=== PATIENT | female | born 1940 | race Caucasian/White ===

== ENCOUNTER → 2021-06-24 11:01 | Outpatient (CLI) | payer MEDICARE, SELFPAY ==
--- NOTE | ~2021-06-24 | MR_ITS ---
EXAMINATION: MR foot LT wo con DATE: 06/24/2021 12:26 INDICATION: Left foot and ankle pain. Arthritis. TECHNIQUE: Magnetic resonance imaging (MRI) of the left foot centered at the midfoot and excluding po rtions of the toes and hindfoot was performed without intravenous contrast. Sequences included sagitt al T1-weighted FSE, sagittal fluid sensitive FSE STIR, coronal PD-weighted FS FSE, coronal T1-weighte d FSE, axial PD-weighted FS FSE, and axial PD-weighted FSE. COMPARISON: Left foot and ankle radiographs dated 01/20/2019 FINDINGS: Chronic fusion across the second tarsal metatarsal joint. Bone alignment is normal. No fractures. No pathologic marrow replacing process. Polyarticular osteoarthritis, severe at the third tarsal metatar chaz joint and at the naviculocuneiform articulations, the latter with prominent subarticular cystic c hanges at both sides of the joint space. Additional moderate osteoarthritis at the first metatarsopha langeal joint and mild osteoarthritis at many of the remaining joints in the mid and forefoot. [place] ligament complex is normal. The flexor and extensor tendons are normal. Mild fatty atrophy of the intrinsic musculature of the foot. No joint effusions, tenosynovitis, bursitis or other abnormal flui d collections. IMPRESSION: 1. 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 2. Fusion across the second tarsal metatarsal joint. Reviewed, dictated and finalized at location A.
== END ==
PROVIDERS: PCP Family Medicine; Visit Provider Podiatrist Foot & Ankle Surgery
DX: M13.872 Other specified arthritis, left ankle and foot (principal); M24.675 Ankylosis, left foot
CPT/HCPCS: 73718

== ENCOUNTER 2021-07-16 17:07 | Emergency (ER) | payer MEDICARE, SELFPAY ==
[2021-07-16 17:11] VITALS: BP 158/56; PULSE 64; RESP 18; TEMP 36.6; O2SAT 96
--- NOTE | 2021-07-16 17:18 | ECG_ITS ---
Measurements Intervals [place] Rate: 56 P: 48 [place]: 152 QRS: -10 QRSD: 86 T: 66 QT: 437 QTc: 423 Interpretive Statements SINUS BRADYCARDIA INCOMPLETE RIGHT BUNDLE BRANCH BLOCK DELAYED PRECORDIAL R/S TRANSITION VOLTAGE CRITERIA FOR LVH MINIMAL Q WAVES- HIGH LATERAL LEADS BASELINE ARTIFACT- I, II, AVR, V1 BORDERLINE ECG Electronically Signed On 07-16-2021 17:45:24 CDT by Noah Gutierrez D.O.
[2021-07-16 17:28] LABS: Basophils Absolute Auto 0.1 K/mm3 (0.0-0.1); Basophils Percent Auto 0.5 % (0.2-1.2); Eosinophils Absolute Auto 0.2 K/mm3 (0-0.3); Eosinophils Percent Auto 1.7 % (0-4.4); Hematocrit 43.1 % (37.0-47.0); Hemoglobin 13.5 g/dL (12.0-15.0); Immature Granulocyte Absolute 0.03 K/mm3 (0.00-0.031); Immature Granulocyte Percent A 0.3 % (0-0.5); Lymphocytes Absolute Auto 2.52 K/mm3 (0.9-3.2); Lymphocytes Percent Auto 27.5 % (18.3-44.2); Mean Corpuscular HGB Conc 31.3 g/dl (32-36); Mean Corpuscular Hemoglobin 29.2 pg (26-34); Mean Corpuscular Volume 93.1 fl (80-100); Mean Platelet Volume 10.2 fl (7.4-10.4); Monocytes Absolute Auto 0.7 K/mm3 (0.1-0.6); Monocytes Percent Auto 7.5 % (2.6-8.5); Neutrophils Absolute Auto 5.7 K/mm3 (1.3-6.7); Neutrophils Percent Auto 62.5 % (45.5-73.1); Platelet Count Result 256 k/mm3 (150-375); Red Blood Count 4.63 M/mm3 (4.2-5.4); Red Cell Distribution Width 14.2 % (11.5-14.5); White Blood Count 9.2 K/mm3 (4.5-10.0)
[2021-07-16 17:41] LABS: Anion Gap 8 mmol/L (8-16); Blood Urea Nitrogen 25 mg/dL (7-17); Calcium 9.5 mg/dL (8.4-10.2); Carbon Dioxide 30 mmol/L (22-30); Chloride 104 mmol/L (98-107); Estimated CRCL calculation 38 ml/min; Estimated Glomerular Filt Rate 53; Glucose 98 mg/dL (65-110); Potassium 4.3 mmol/L (3.4-5.0); Sodium 142 mmol/L (137-145)
[2021-07-16 17:53] LABS: Troponin I < 0.012 ng/mL (0.000-0.034)
[2021-07-16 21:10] VITALS: BP 150/69; PULSE 59; RESP 16; TEMP 36.7; O2SAT 96
[2021-07-16 21:45] VITALS: BP 210/87; PULSE 64; RESP 17; O2SAT 98
[2021-07-16 21:58] VITALS: BP 193/84; PULSE 61; RESP 16; O2SAT 95
--- NOTE | 2021-07-16 22:54 | ED.RECABL ---
HPI - Recheck/Abnormal Lab/Rx General Chief Complaint: Recheck/Abnormal Lab/Rx Stated Complaint: high BP Time Seen by Provider: 07/16/21 21:43 History of Present Illness HPI narrative: Patient presents for recheck of her blood pressure. Patient reports today she noted her blood pressures were greater than 200 she talked her PCM and some friends and recommended that she come to the ER for evaluation. Patient reports initially felt a little lightheaded and had some back pain but her symptoms have now resolved. She denies any headaches, change in vision, focal numbness or weakness. Related Data Home Medications Medication Instructions Recorded Confirmed aspirin 81 mg tablet,delayed 81 mg PO DAILY 11/03/19 12/27/20 release multivitamin 1 tablet PO DAILY 11/03/19 12/27/20 pregabalin 50 mg capsule 50 mg PO DAILY cap 06/21/20 12/27/20 Allergies Allergy/AdvReac Type Severity Reaction Status Date / Time procaine Allergy Unknown syncope Verified 07/13/21 14:00 Sulfa (Sulfonamide Allergy Unknown rash Verified 07/13/21 14:00 Antibiotics) sulfacetamide Allergy Unknown rash Verified 07/13/21 14:00 sulfur dioxide Allergy Unknown rash Verified 07/13/21 14:00 Review of Systems Review of Systems: CONSTITUTIONAL: Denies fever, chills, or sweats. EYES: Denies visual changes, redness, or discharge. ENT: Denies rhinorrhea, congestion, sore throat, or otalgia. CARDIOVASCULAR: Denies chest pain, palpitations, or edema. RESPIRATORY: Denies cough or dyspnea. GASTROINTESTINAL: Denies abdominal pain, nausea, vomiting, or diarrhea. GENITOURINARY: Denies dysuria or hematuria. SKIN: Denies rash or itching. MUSCULOSKELETAL: Denies back pain, joint pain, or myalgia. NEUROLOGIC: Denies headache, numbness, dizziness, or weakness. PSYCHIATRIC: Denies anxiety or depression. All systems reviewed & are unremarkable except as noted in HPI and below PMFSH Past Medical History Medical History Chronic kidney disease, stage 3 unspecified Rash Family History Family History Father Family history of pancreatic cancer Hypertension Family history of malignant neoplasm Mother Family history of malignant neoplasm of breast in first degree relative Hypertension Family history of coronary artery disease Sibling Family history of coronary artery disease Other Family history of congenital heart disease Social History Social History Smoking packs per day: 1 Smoking cigarettes per day: 20.0 Years smoked: 15 Smoking pack-years: 15.00 Smoking status: Former smoker Tobacco type: cigarettes Second hand tobacco smoke exposure: No Smoking end date: 12/02/00 Alcohol intake: never Substance use: never Substance use type: does not use Gender identity (if verbalized by the patient): Female Exam Narrative: GENERAL: Well-appearing, well-nourished, and in no acute distress. HEAD: Normocephalic, atraumatic. EYES: PERRLA and EOMI. ENT: Nares clear, no rhinorrhea or epistaxis. Mucous membranes moist. NECK: Supple. No masses. No JVD CHEST: Clear to auscultation. No respiratory distress. No wheezes rales or rhonchi HEART: Regular rate and rhythm. No murmur heard. Normal peripheral pulses. ABDOMEN: Soft, nontender, nondistended, normal active bowel sounds. EXTREMITIES: Normal range of motion. No edema. SKIN: Warm, dry, no rash. NEURO: 5 out of 5 strength in all extremities sensation intact to light touch cranial nerves II through XII are intact alert and oriented x3. PSYCH: Normal mood and affect. Course Vital Signs Vital signs: Vital Signs Temperature 36.6 C 07/16/21 17:11 Pulse Rate 64 07/16/21 17:11 Respiratory Rate 18 07/16/21 17:11 Blood Pressure 158/56 H 07/16/21 17:11 Pulse Oximetry 96 07/16/21 17:11 Temperature 36.7 C 07/16/21 21
[2021-07-16 23:11] VITALS: BP 196/76; PULSE 65; RESP 18; O2SAT 96
== END 2021-07-16 23:12 | disposition home or self-care (01) ==
PROVIDERS: Emergency Medicine; Emergency Provider Emergency Medicine; PCP Family Medicine
DX: R03.0 Elevated blood-pressure reading, without diagnosis of hypertension (principal); N18.30 Chronic kidney disease, stage 3 unspecified; Z87.891 Personal history of nicotine dependence
CPT/HCPCS: 36415; 80048; 84484; 85025; 93005; 99284

== ENCOUNTER → 2023-05-23 12:17 | Outpatient (CLI) | payer MEDICARE, SELFPAY ==
--- NOTE | ~2023-05-23 | DEXA_ITS ---
Bone Density Report Name: PAU BURLESON Age: 82 Sex: Female Ethnicity: White Date of : 1940 Indication: postmenopausal; screening for osteoporosis; height loss; hysterectomy; Referring Provider: Mango Juarez Study: Bone densitometry was performed. Exam Date: May 23, 2023 Accession number: [id number] Bone Density: Region BMD T-score Z-score Classification AP Spine (L1, L2) 1.000 0.2 2.8 Normal Femoral Neck (Left) 0.662 -1.7 0.7 Osteopenia Total Hip (Left) 0.647 -2.4 -0.3 Osteopenia World Health Organization criteria for BMD impression classify patients as: Normal (T-score at or above -1.0), Osteopenia (T-score between -1.0 and -2.5), or Osteoporosis (T-score at or below -2.5). 10-year Fracture Risk(1): Major Osteoporotic Fracture 14% Hip Fracture 3.5% Reported Risk Factors: [place] (), Neck BMD=0.662, BMI=29.7 (1) FRAX(R) Version 3.08. Fracture probability calculated for an untreated patient. Fracture probability may be lower if the patient has received treatment. Clinical Information Provided by Patient: Has used the following medications: Vitamin D Has the following medical conditions: Hysterectomy Patient maximum height was 62.5 Menopause Age: 36 No regular weight bearing exercise Drinks caffeinated beverages Onset of menses at age 13 Number of children 5 Impression: The patient has low bone mass, based on the Left Total Hip T-score. The patient has an estimated ten-year risk of hip fracture of 3.5% and an estimated ten-year risk of major fracture of 14%, based on the WHO FRAX algorithm. Discussion: BONE DENSITY IS LOW AT ONE OR MORE SKELETAL SITES. THE PATIENT'S BMD AND CLINICAL RISK FACTORS CONTRIBUTE TO THIS PATIENT'S INCREASED RISK OF FRACTURE. This patient's lowest T-score is low at one or more skeletal sites. It meets the World Health Organization's (WHO) criteria for ?low bone mass? (T-score between -1.0 and -2.5). The patient's 10-year risk of hip fracture as calculated by FRAX exceeds the threshold where pharmacological therapy is recommended by the National Osteoporosis Foundation (NOF). However, all treatment decisions require clinical judgment and consideration of individual patient factors, including patient preferences, comorbidities, previous drug use, risk factors not captured in the FRAX model (e.g., frailty, falls, vitamin D deficiency, increased bone turnover, interval significant decline in bone density) and possible under or overestimation of fracture risk by FRAX. The patient should follow a healthful lifestyle (good nutrition with adequate calcium and vitamin D, and appropriate weight-bearing exercise). Follow-Up: Consider a repeat BMD and Vertebral Fracture Assessment (VFA) exam in 2 years or sooner if medically necessary, to reassess this patient's status. Reported by: KYA on
== END ==
PROVIDERS: PCP Family Medicine; Visit Provider Family Medicine
DX: Z78.0 Asymptomatic menopausal state (principal); M85.852 Other specified disorders of bone density and structure, left thigh
CPT/HCPCS: 77080

== ENCOUNTER → 2023-05-23 12:22 | Outpatient (CLI) | payer MEDICARE, SELFPAY ==
--- NOTE | ~2023-05-23 | XR_ITS ---
EXAM: XR lumbar spine 2-3V DATE: 05/23/2023 13:11 HISTORY: NO INJURY LEFT HIP AND LB . COMPARISON: None available. FINDINGS: Osteopenia. Moderate lumbar scoliosis. Partially visualized right hip arthroplasty. Cholecy stectomy clips. 5 nonrib-bearing lumbar-type vertebral bodies. Pedicles intact. Exaggerated lumbar lo rdosis. 3 mm retrolistheses at L1-2, L2-3, and L3-4. 2 mm anterolisthesis at L5-S1. Multilevel disc s pace narrowing and marginal osteophytosis severe at L1-2 through L3-4 and L5-S1. Severe sclerosis and hypertrophy in the lower lumbar facets. No fracture or dislocation. IMPRESSION: Multilevel grade 1 listheses, detailed above. Multilevel severe lumbar degenerative disc disease. Ultrasound level severe facet arthropathy. Reviewed, dictated and finalized at location K. IMPRESSION: Multilevel grade 1 listheses, detailed above. Multilevel severe lum bar degenerative disc disease. Ultrasound level severe facet arthropathy.
--- NOTE | ~2023-05-23 | XR_ITS ---
EXAM: XR sacroiliac joints min 3V DATE: 05/23/2023 13:11 HISTORY: NO INJURY LEFT HIP AND LBP . COMPARISON: None available. FINDINGS: Decreased mineralization. Slight narrowing and mild osteophytosis in the bilateral SI join ts. Severe lumbar degenerative disc disease. Partially visualized right hip arthroplasty. IMPRESSION: Mild degenerative change in the bilateral SI joints. Reviewed, dictated and finalized at location K.
== END ==
PROVIDERS: PCP Family Medicine; Visit Provider Physician Assistant
DX: M25.552 Pain in left hip (principal); M51.36 Other intervertebral disc degeneration, lumbar region; M53.3 Sacrococcygeal disorders, not elsewhere classified
CPT/HCPCS: 72100; 72202

== ENCOUNTER → 2023-05-23 12:26 | Outpatient (CLI) | payer MEDICARE, SELFPAY ==
--- NOTE | ~2023-05-23 | XR_ITS ---
AP and lateral views of the left hip Clinical history: Pain Findings: No acute fracture or dislocation is seen. Osseous alignment is anatomic. The left hip joint and left SI joint are preserved. Soft tissues are unremarkable. Impression: No significant abnormality is seen. Reviewed, dictated and finalized at [facility]. Impression: No significant abnormality is seen.
== END ==
PROVIDERS: PCP Family Medicine; Visit Provider Family Medicine
DX: M25.552 Pain in left hip (principal)
CPT/HCPCS: 73502

== ENCOUNTER 2023-07-08 13:59 | Emergency (ER) | payer MEDICARE, SELFPAY ==
--- NOTE | ~2023-07-08 | XR_ITS ---
EXAM: XR knee LT min 4V DATE: 07/08/2023 16:42 HISTORY: fall saturday, L knee pain . COMPARISON: 07/30/2018. FINDINGS: Decreased mineralization. No fracture or dislocation. No lytic or blastic lesion. Tricompa rtmental osteoarthritis, moderate in the medial compartment. No erosion or periosteal change. Scatter ed vascular calcifications. Small left knee joint effusion. IMPRESSION: No acute osseous finding in the left knee. Reviewed, dictated and finalized at location K.
--- NOTE | ~2023-07-08 | XR_ITS ---
EXAM: XR hip RT 2V w AP pelvis DATE: 07/08/2023 16:42 HISTORY: fall saturday, R hip pain . COMPARISON: 09/01/2018. FINDINGS: Uncomplicated right hip arthroplasty. Decreased mineralization. No fracture or dislocation . No lytic or blastic lesion. Lumbar degenerative disc disease. Scattered pelvic and hip enthesopathy . Moderate right hip osteoarthritis. No erosion or periosteal change. Soft tissues within normal limi ts. IMPRESSION: No acute osseous finding in the pelvis or right hip. No radiographic evidence of hardware related complication. Reviewed, dictated and finalized at location K. IMPRESSION: No acute osseous finding in the pelvis or right hip. No radiographi c evidence of hardware related complication.
--- NOTE | ~2023-07-08 | CT_ITS ---
EXAMINATION: CT brain wo con DATE: 07/08/2023 15:02 INDICATION: fall 2d ago, HI, on asa . TECHNIQUE: Computed tomography (CT) of the head was performed without intravenous contrast. The mA wa s adjusted according to patient size. Iterative reconstruction technique was employed. The dose-lengt h product was 529.67 mGy-cm. COMPARISON: None. FINDINGS: No acute intracranial hemorrhage or extra-axial fluid collection. No hydrocephalus, mass, or herniation. No acute ischemic infarct. Unremarkable dural venous sinus attenuation. No acute osseous abnormality. Frontal scalp swelling/contusion. Retention cyst or polyp in the left sphenoid sinus, the remaining aerated spaces are clear. Mild atrophy and chronic white matter change. Atherosclerotic intracranial calcification. Bilateral l ens replacements. IMPRESSION: No acute intracranial process. Reviewed, dictated and finalized at location K.
--- NOTE | ~2023-07-08 | CT_ITS ---
EXAMINATION: CT facial & cervical spine wo DATE: 07/08/2023 15:02 INDICATION: fall 2d ago, HI, on asa TECHNIQUE: Computed tomography (CT) of the maxillofacial region and cervical spine was performed with out intravenous contrast. Automated exposure control and iterative reconstruction technique were empl oyed. The dose-length product was 239.48 mGy-cm. COMPARISON: X-ray C-spine 11/08/2015, images only. FINDINGS: CERVICAL: Vertebral Body Alignment: Intact. Reversed lordosis centered at C5-6. Multilevel grade 1 listheses, n ot significantly changed. Craniocervical and atlantoaxial alignment: Moderate degenerative change. Alignment intact. Osseous structures/fracture: No evidence of a lytic or blastic process in the visualized spine. No e vidence of acute fracture. Vertebral body fusion at C5-6. Cervical soft tissues: The paraspinal soft tissues planes are maintained. Degenerative changes: Multilevel degenerative disc disease. Multilevel severe bilateral neural forami nal narrowing. No severe central canal narrowing. FACE: Soft Tissues: No significant superficial soft tissue swelling. Facial bones: Minimally displaced nasal bone fractures. No lytic or blastic process. Bilateral TMJ a rthritis. Eyes: The globes are intact. The soft tissue planes of the orbits are maintained. Paranasal Sinuses: Retention cyst or polyp in the left sphenoid sinus. The remaining visualized aera too spaces are clear. Foreign Bodies: No radiopaque foreign bodies. Other Findings: None. IMPRESSION: No acute fracture or traumatic malalignment in the cervical spine. Minimally displaced, acute versus chronic nasal bone fractures, correlate with pain/tenderness. Reviewed, dictated and finalized at location K. IMPRESSION: No acute fracture or traumatic malalignment in the cervical spine. Minimally di splaced, acute versus chronic nasal bone fractures, correlate with pain/tendern ess.
[2023-07-08 14:02] VITALS: BP 140/75; PULSE 57; RESP 20; TEMP 36.3; O2SAT 96
--- NOTE | 2023-07-08 15:54 | ED.FALL ---
HPI - Fall General Chief Complaint: Fall Stated Complaint: fall Time Seen by Provider: 07/08/23 14:33 Source: patient Mode of arrival: ambulatory Limitations: no limitations History of Present Illness HPI Narrative: Patient is an 82-year-old female who presents to ED with report of a fall. Patient reports she was walking out of her house with her on Saturday when he lost his balance and fell onto her, causing her to fall face first to the ground. She sustained a large contusion to her forehead. She did not lose consciousness. She remembers the entire fall. This morning, she woke up with more swelling and bruising to her face and around her eyes, which prompted her presentation. Patient takes an aspirin 81 mg daily. No other blood thinners. She also reports having pain to her R hip and L knee. She has been ambulatory since the fall. She denies any dizziness, lightheadedness, vision changes, nausea, vomiting, neck pain, back pain. Related Data Home Medications Medication Instructions Recorded Confirmed aspirin 81 mg tablet,delayed 81 mg PO DAILY 11/03/19 05/01/23 release (Adult Aspirin Regimen) multivitamin 1 tablet PO DAILY 11/03/19 05/01/23 sodium bicarbonate-sodium chloride ea miscellaneous 01/16/23 05/01/23 powder Allergies Allergy/AdvReac Type Severity Reaction Status Date / Time procaine Allergy Unknown syncope Verified 07/08/23 16:42 Sulfa (Sulfonamide Allergy Unknown rash Verified 07/08/23 16:42 Antibiotics) sulfacetamide Allergy Unknown rash Verified 07/08/23 16:42 sulfur dioxide Allergy Unknown rash Verified 07/08/23 16:42 Review of Systems Review of Systems: CONSTITUTIONAL: Denies fever, chills, or sweats. EYES: Denies visual changes. CARDIOVASCULAR: Denies chest pain. RESPIRATORY: Denies dyspnea. GASTROINTESTINAL: Denies abdominal pain, nausea, vomiting. MUSCULOSKELETAL: See HPI. NEUROLOGIC: See HPI. All systems reviewed & are unremarkable except as noted in HPI and below PMFSH Past Medical History Medical History Chronic kidney disease, stage 3 unspecified HLD (hyperlipidemia) Rash Surgical History Surgical History History of right hip replacement Family History Family History Father Family history of pancreatic cancer Hypertension Family history of malignant neoplasm Mother Family history of malignant neoplasm of breast in first degree relative Hypertension Family history of coronary artery disease Sibling Family history of coronary artery disease Other Family history of congenital heart disease Social History Social History Smoking packs per day: 1 Smoking cigarettes per day: 20.0 Years smoked: 15 Smoking pack-years: 15.00 Smoking status: Former smoker Tobacco type: cigarettes Second hand tobacco smoke exposure: No Smoking end date: 12/02/00 Alcohol intake: never Substance use: never Substance use type: does not use Lack of Transportation: No Lack of Food: Sometimes True Current Housing: I Have Housing Concerned About Future Housing: No Difficulty Paying Gas/Electric Bills: No Difficulty Paying for Meds: No Currently Unemployed: No Education: High School Diploma/GED Difficulty w/ Childcare or Family Care: No Living arrangements: with family Occupation/Education: retired Gender identity (if verbalized by the patient): Female Sexual Orientation (if Verbalized by the Patient): Straight or Heterosexual Exam Narrative: GENERAL: Elderly, well-nourished, non-toxic, in no acute distress. HEAD: Normocephalic. Large contusion/hematoma to forehead with surrounding ecchymosis in various colors. Hematoma slightly tender to palpation. EYES: PERRLA/EOMI, conjunctiva clear. Purple
[2023-07-08 17:40] VITALS: BP 114/60; PULSE 75; RESP 18; O2SAT 94
== END 2023-07-08 17:42 | disposition home or self-care (01) ==
PROVIDERS: Emergency Provider Physician Assistant; PCP Family Medicine
DX: S00.83XA Contusion of other part of head, initial encounter (principal); S02.2XXA Fracture of nasal bones, initial encounter for closed fracture; N18.30 Chronic kidney disease, stage 3 unspecified; E78.5 Hyperlipidemia, unspecified; Z87.891 Personal history of nicotine dependence; Z79.82 Long term (current) use of aspirin; W03.XXXA Other fall on same level due to collision with another person, initial encounter
CPT/HCPCS: 70450; 70486; 72125; 73502; 73564; 99284

== ENCOUNTER 2023-10-30 11:10 | Inpatient (IN) | payer MEDICARE, SELFPAY ==
--- NOTE | ~2023-10-30 | CT_ITS ---
EXAMINATION: CT chest abdomen pelvis wo con DATE: 11/03/2023 14:53 SCUBA DIVING TEACHER INDICATION: Cough and abdominal pain. TECHNIQUE: Computed tomography (CT) of the chest, abdomen, and pelvis was performed without intraveno us contrast. The dose-length product was 777.07 mGy-cm. Automated exposure control and iterative henrik nstruction technique were employed. COMPARISON: CT dated 10/30/2023 FINDINGS: CHEST CT: There is atherosclerosis of the aorta and coronary arteries. No significant pleural or pericardial ef fusion. There is mild left pleural thickening, nonspecific. Moderate size hiatal hernia. There are pa tchy groundglass opacities with areas of reticulonodular opacification throughout both lungs, consist ent with pneumonia. No endobronchial lesions. No pneumothorax. Mild mediastinal lymphadenopathy, like ly reactive. ABDOMEN/PELVIS CT: The liver, spleen, pancreas, adrenal glands and kidneys are unremarkable. Moderate atherosclerosis of the aorta without aneurysm. No lymphadenopathy. There is a right total hip arthroplasty. Small fat-c ontaining umbilical hernia. Nonobstructive bowel gas pattern. Severe lumbar spondylosis with degenera tive retrolisthesis at L2-3 and L3-4. There is grade 1 degenerative spondylolisthesis at L5-S1. There is scoliosis. Moderate osteoarthritis of the left hip. IMPRESSION: 1. Patchy groundglass and reticulonodular opacities of the lungs, consistent with pneumonia. 2: Nonspecific bilateral pleural thickening. 3: Mild mediastinal lymphadenopathy, likely reactive. Reviewed, dictated and finalized at location A. A DIVING TEACHER IMPRESSION: 1. Patchy groundglass and reticulonodular opacities of the lungs, consistent wi th pneumonia. 2: Nonspecific bilateral pleural thickening. 3: Mild mediastinal lymphadenopathy, likely reactive.
--- NOTE | ~2023-10-30 | XR_ITS ---
EXAMINATION: XR chest 1V portable DATE: 11/01/2023 13:06 INDICATION: Shortness of breath. TECHNIQUE: A single frontal view of the chest was obtained. COMPARISON: Chest 2 views 10/30/2023, CT abdomen and pelvis 10/30/2023, 03/02/2019 FINDINGS: The lung volumes are normal. There are chronic interstitial opacities in the mid and lower lung zones. No pleural effusion or pneumothorax. The heart size is normal. There is a moderate-sized hiatal hernia. There are surgical clips in the abdomen. IMPRESSION: 1. Mild chronic interstitial lung disease. 2. Moderate-sized hiatal hernia. Reviewed, dictated and finalized at location A. MOBILE UPHOLSTERY TRIM INSTALLER
--- NOTE | ~2023-10-30 | XR_ITS ---
EXAMINATION: XR chest 2V 10/30/2023 12:26 INDICATION: Fever. PROCEDURE: PA and lateral views of the chest COMPARISON: 12/15/2013 FINDINGS: The lungs are clear. The lungs are hyperinflated which is consistent with, but not diagnost ic of chronic obstructive pulmonary disease. The cardiomediastinal silhouette is within normal limits . There are no pleural effusions. There is no pneumothorax suspected. There are cholecystectomy cl ips. There are are degenerative changes of the shoulders. IMPRESSION: 1: NO ACUTE CARDIOPULMONARY DISEASE. Reviewed, dictated and finalized at location B. RGROUND MINE MACHINERY MECHANIC
--- NOTE | ~2023-10-30 | CT_ITS ---
EXAMINATION: CT abdomen pelvis w con DATE: 10/30/2023 15:17 INDICATION: Abdominal pain. Nausea. Fever and chills. TECHNIQUE: Computed tomography (CT) of the abdomen and pelvis was performed with 100 mL Omnipaque 350 intravenous contrast. Automated exposure control and iterative reconstruction technique were employe d. The dose-length product was 684.75 mGy-cm. COMPARISON: CT abdomen and pelvis 03/02/2019 FINDINGS: The visualized portions of the lung bases demonstrate stable chronic interstitial lung dise ase. No pleural effusion. There is left atrial enlargement of the heart. There are coronary artery ca lcifications. No pericardial effusion. There is a large sliding hiatal hernia. The liver is normal. T here are changes of cholecystectomy. The spleen, pancreas, adrenal glands, and right kidney are brandi l. There is asymmetric edema around left kidney. There is urothelial thickening and enhancement in le ft renal pelvis, consistent with pyelitis. There are no dilated loops of bowel. The appendix is brandi l. There is an umbilical hernia containing fat. There is calcified atherosclerosis of the aorta and m any of the other arteries. 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 There are no pa thologically enlarged lymph nodes. There is no free intraperitoneal fluid. There is a total right hip arthroplasty. There is severe lumbar spondylosis. IMPRESSION: 1. Left-sided pyelitis. 2. Large sliding hiatal hernia. Reviewed, dictated and finalized at location A. GER FLOOR
[2023-10-30 11:12] VITALS: BP 107/44; PULSE 56; RESP 18; TEMP 36.2; O2SAT 94
[2023-10-30 12:49] LABS: Basophils Percent Auto 0.4 % (0.2-1.2); Eosinophils Percent Auto 0.1 % (0-4.4); Hematocrit 39.9 % (37.0-47.0); Hemoglobin 12.6 g/dL (12.0-15.0); Immature Granulocyte Absolute 0.02 K/mm3 (0.00-0.031); Immature Granulocyte Percent A 0.2 % (0-0.5); Lymphocytes Absolute Auto 1.03 K/mm3 (0.9-3.2); Lymphocytes Percent Auto 9.1 % (18.3-44.2); Mean Corpuscular HGB Conc 31.6 g/dl (32-36); Mean Corpuscular Hemoglobin 29.9 pg (26-34); Mean Corpuscular Volume 94.5 fl (80-100); Mean Platelet Volume 10.8 fl (7.4-10.4); Monocytes Absolute Auto 0.9 K/mm3 (0.1-0.6); Monocytes Percent Auto 7.7 % (2.6-8.5); Neutrophils Absolute Auto 9.3 K/mm3 (1.3-6.7); Neutrophils Percent Auto 82.5 % (45.5-73.1); Platelet Count Result 196 k/mm3 (150-375); Red Blood Count 4.22 M/mm3 (4.2-5.4); Red Cell Distribution Width 13.2 % (11.5-14.5); White Blood Count 11.3 K/mm3 (4.5-10.0)
[2023-10-30 13:06] LABS: Alanine Aminotransferase 18 U/L (6-35); Alkaline Phosphatase 91 U/L (38-126); Anion Gap 10 mmol/L (8-16); Aspartate Amino Transferase 29 U/L (14-36); Bilirubin,Total 0.8 mg/dL (0.2-1.3); Blood Urea Nitrogen 34 mg/dL (7-17); Calcium 8.9 mg/dL (8.4-10.2); Carbon Dioxide 24 mmol/L (22-30); Chloride 102 mmol/L (98-107); Estimated Glomerular Filt Rate 31; Glucose 120 mg/dL (65-110); Potassium 3.7 mmol/L (3.4-5.0); Sodium 136 mmol/L (137-145)
[2023-10-30 13:14] LABS: Influenza A QL RT-PCR Negative (Negative); Influenza B QL RT-PCR Negative (Negative); SARS-CoV-2 RNA PCR Negative (Negative)
[2023-10-30] MEDS: SODIUM CHLORIDE 0.9% IV 500 ML 999 ML IV CONT ×2 (13:40→16:22)
--- NOTE | 2023-10-30 13:44 | ED.URI ---
HPI - URI/Sore Throat General Chief Complaint: Upper Respiratory Infection <Daphne Linda PA-C - Last Filed: 10/30/23 17:10> Stated Complaint: uri <ROGERIO Cintron Last Filed: 10/30/23 17:10> Time Seen by Provider: 10/30/23 11:57 <ROGERIO Cintron Last Filed: 10/30/23 17:10> Source: patient <ROGERIO Cintron Last Filed: 10/30/23 17:10> Mode of arrival: ambulatory <ROGERIO Cintron Last Filed: 10/30/23 17:10> Limitations: no limitations <ROGERIO Cintron Last Filed: 10/30/23 17:10> History of Present Illness HPI Narrative: This is a 82 year old female that presents to the ER for symptoms present over the last 5 days. Reports nausea, fever, chills, and low abdominal pain. Also reports cough, congestion. She has been taking over the counter medications with little relief. Denies dysuria or hematuria. <ROGERIO Cintron Last Filed: 10/30/23 17:10> Related Data Home Medications: Home Medications Medication Instructions Recorded Confirmed aspirin 81 mg tablet,delayed 81 mg PO DAILY 11/03/19 10/30/23 release (Adult Aspirin Regimen) multivitamin 1 tablet PO DAILY 11/03/19 10/30/23 <ROGERIO Cintron Last Filed: 10/30/23 17:10> Allergies/Adverse Reactions: Allergies Allergy/AdvReac Type Severity Reaction Status Date / Time procaine Allergy Unknown syncope Verified 10/30/23 17:46 Sulfa (Sulfonamide Allergy Unknown rash Verified 10/30/23 17:46 Antibiotics) sulfacetamide Allergy Unknown rash Verified 10/30/23 17:46 sulfur dioxide Allergy Unknown rash Verified 10/30/23 17:46 <ROGERIO Cintron Last Filed: 10/30/23 17:10> Review of Systems Review of Systems: CONSTITUTIONAL: Denies fever ENT: Reports rhinorrhea, congestion CARDIOVASCULAR: Denies chest pain RESPIRATORY: Reports cough. Denies dyspnea. GASTROINTESTINAL: Reports abdominal pain, nausea. Denies vomiting, or diarrhea. GENITOURINARY: Denies dysuria <Daphne Linda PA-C - Last Filed: 10/30/23 17:10> All systems reviewed & are unremarkable except as noted in HPI and below <Daphne Linda PA-C - Last Filed: 10/30/23 17:10> [facility] Past Medical History Medical History: Medical History Chronic kidney disease, stage 3 unspecified HLD (hyperlipidemia) Rash <Daphne Linda PA-C - Last Filed: 10/30/23 17:10> Surgical History Surgical History: Surgical History History of right hip replacement <Daphne Linda PA-C - Last Filed: 10/30/23 17:10> Family History Family History: Family History Father Family history of pancreatic cancer Hypertension Family history of malignant neoplasm Mother Family history of malignant neoplasm of breast in first degree relative Hypertension Family history of coronary artery disease Sibling Family history of coronary artery disease Other Family history of congenital heart disease <Daphne Linda PA-C - Last Filed: 10/30/23 17:10> Social History Social History: Social History Smoking packs per day: 1 Smoking cigarettes per day: 20.0 Years smoked: 15 Smoking pack-years: 15.00 Smoking status: Former smoker Second hand tobacco smoke exposure: No Alcohol intake: never Substance use: never Substance use type: does not use Lack of Transportation: No Lack of Food: Sometimes True Current Housing: I Have Housing Concerned About Future Housing: No Difficulty Paying Gas/Electric Bills: No Difficulty Paying for Meds: No Currently Unemployed: No Education: High School Diploma/GED Difficulty w/ Childcare or Family Care: No Living arrangements: with family Occupation/Education: retired Gender identity (if verbalized by the santos
[2023-10-30 14:51] LABS: Appearance Urine Cloudy (Clear); Bacteria Urine None Seen /hpf; Bilirubin Urine Negative (Negative); Blood Urine Negative (Negative); Color Urine Dark Yellow (Yellow); Glucose Urine UA Negative (Negative); Hyaline Casts Urine Present /lpf; Ketones Urine Trace mg/dL (Negative); Leukocyte Esterase Ur 2+ LEU/UL (Negative); Nitrate Urine Negative (Negative); Non Pathogenic Casts >20; Protein Urine 1+ mg/dL (Negative); RBC Urine 0-2 /hpf (0-2); Specific Grav Ur 1.023 (1.001-1.035); Squamous Epithelial Cell Urine Moderate /hpf (Few); WBC Urine 51-100 /hpf
[2023-10-30 14:55] LABS: Add Urine Microscopic? YES
[2023-10-30 16:14] VITALS: BP 174/58; PULSE 82; RESP 18; TEMP 36.8; O2SAT 98
[2023-10-30] MEDS: ACETAMINOPHEN 500 MG TABLET 1000 MG PO ×2 (16:22→23:05)
[2023-10-30 16:45] VITALS: BP 155/56; PULSE 79; RESP 18; O2SAT 98
[2023-10-30] MEDS: SODIUM CHLORIDE 0.9% IV 1,000 ML 125 ML IV CONT (18:03)
[2023-10-30 18:35] VITALS: PULSE 79; RESP 18; O2SAT 98
[2023-10-30 18:39] VITALS: BP 114/53; PULSE 64; RESP 16; TEMP 37.4; O2SAT 94
--- NOTE | 2023-10-30 20:24 | PM.IMHP ---
H&P: HPI History of Present Illness Date/Time: 10/30/23 20:24 Chief Complaint: ABDOMINAL PAIN Narrative: THIS IS AN 82-YEAR-OLD FEMALE WITH PAST MEDICAL HISTORY SIGNIFICANT FOR HYPERTENSION, CHRONIC KIDNEY DISEASE, DYSLIPIDEMIA, DEGENERATIVE JOINT DISEASE. PATIENT PRESENTS TO THE EMERGENCY ROOM DUE TO 4-5 DAYS OF GENERALIZED MALAISE ABDOMINAL PAIN, NAUSEA, DIARRHEA HOWEVER DENIES DYSURIA, HAS HAD CHILLS, POOR PER ORALLY INTAKE, POOR APPETITE. PRELIMINARY WORKUP WAS SIGNIFICANT FOR URINALYSIS WITH NUMEROUS WBCS PRESENT. PATIENT HAS BEEN ADMITTED FOR FURTHER EVALUATION MANAGEMENT AND TREATMENT. EXAMINATION: XR chest 2V 10/30/2023 12:26 INDICATION: Fever. PROCEDURE:? PA and lateral views of the chest COMPARISON: 12/15/2013 FINDINGS: The lungs are clear. The lungs are hyperinflated which is consistent with, but not diagnostic of chronic obstructive pulmonary disease. The cardiomediastinal silhouette is within normal limits.? There are no pleural effusions.? There is no pneumothorax suspected.? There are cholecystectomy clips. There are are degenerative changes of the shoulders. IMPRESSION: 1:? NO ACUTE CARDIOPULMONARY DISEASE. EXAMINATION: CT abdomen pelvis w con DATE: 10/30/2023 15:17 INDICATION: Abdominal pain. Nausea. Fever and chills. TECHNIQUE: Computed tomography (CT) of the abdomen and pelvis was performed with 100 mL Omnipaque 350 intravenous contrast. Automated exposure control and iterative reconstruction technique were employed. The dose-length product was 684.75 mGy-cm. COMPARISON: CT abdomen and pelvis 03/02/2019 FINDINGS: The visualized portions of the lung bases demonstrate stable chronic interstitial lung disease. No pleural effusion. There is left atrial enlargement of the heart. There are coronary artery calcifications. No pericardial effusion. There is a large sliding hiatal hernia. The liver is normal. There are changes of cholecystectomy. The spleen, pancreas, adrenal glands, and right kidney are normal. There is asymmetric edema around left kidney. There is urothelial thickening and enhancement in left renal pelvis, consistent with pyelitis. There are no dilated loops of bowel. The appendix is normal. There is an umbilical hernia containing fat. There is calcified atherosclerosis of the aorta and many of the other arteries.? 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 There are no pathologically enlarged lymph nodes. There is no free intraperitoneal fluid. There is a total right hip arthroplasty. There is severe lumbar spondylosis. IMPRESSION: 1. Left-sided pyelitis. 2. Large sliding hiatal hernia. Review of Systems Review of Systems: ABDOMINAL PAIN, GENERALIZED MALAISE, FEVERS, CHILLS, POOR PER ORALLY INTAKE. Constitutional: Constitutional: Reports chills, Reports fever(s), Reports malaise and Reports poor appetite Eyes: Eyes: Denies change in vision ENT: Denies dysphagia and Denies odynophagia Cardiovascular: Cardiovascular: Denies chest pain, Denies radiating jaw, neck or arm pain and Denies palpitations Respiratory: Respiratory: Denies cough and Denies dyspnea Gastrointestinal: Gastrointestinal: Reports abdominal pain, Denies dyspepsia, Denies heartburn, Reports diarrhea, Reports nausea and Reports vomiting Genitourinary: Genitourinary: Denies dysuria Musculoskeletal: Musculoskeletal: Reports myalgias Integumentary/Breasts: Skin/Breast: Denies rash Neurologic: Denies focal weakness and Denies Sensory deficit (Neuro) Psychiatric: Psychiatric: Reports no additional psychiatric complaints and Reports as per HPI Endocrine: Endocrine: Denies cold intolerance, Denies fatigue, Denies flushing, Denies heat intolerance, Denies polyphagia, Denies polydipsia and Denies palpitations Hematologic/Lymphatic: Hematologic/Lymphatic: Reports no additional hematologic/lymphatic complaints and Reports as per HPI Allergic/Immunologic: Allergic/Immunologic: Reports no additional aller
[2023-10-30 22:00] VITALS: BP 118/50; PULSE 58; RESP 17; TEMP 37.6; O2SAT 95
[2023-10-30] MEDS: traZODone HCL 50 MG TABLET PO (23:48)
[2023-10-31] VITALS (7 sets, daily range): BP systolic 121–141; BP diastolic 47–75; PULSE 68–89; RESP 14–20; TEMP 36.8–38.1; O2SAT 63–95
[2023-10-31] MEDS: SODIUM CHLORIDE 0.9% IV 1,000 ML 125 ML IV CONT ×3 (02:21→17:36)
[2023-10-31] MEDS: ATORVASTATIN 20 MG TABLET PO ×2 (02:21→19:58)
[2023-10-31] MEDS: ACETAMINOPHEN 500 MG TABLET 1000 MG PO ×3 (05:32→22:22)
--- NOTE | 2023-10-31 08:13 | PM.IMPN ---
Progress Note: A&P Assessment and Plan (1) Pyelitis: Code(s): N12 - Tubulo-interstitial nephritis, not specified as acute or chronic Status: Acute Assessment and Plan: 10/31: WBC count 11k with left shift. Currently on rocephin which will continue. Culture is pending. (2) Acute UTI: Code(s): N39.0 - Urinary tract infection, site not specified Status: Acute (3) Acute on chronic kidney failure: Code(s): N17.9 - Acute kidney failure, unspecified; N18.9 - Chronic kidney disease, unspecified Status: Acute Assessment and Plan: 10/31: Normal gfr in the 40-50 range, today at 31. Has had poor intake recently and acute urinary tract infection/pyelitis. Cont. with IVF and trend labs. (4) Chronic kidney disease, stage 3 unspecified: Qualifiers: Chronic kidney disease stage 3 subtype: unspecified whether 3a or 3b Qualified Code(s): N18.30 - Chronic kidney disease, stage 3 unspecified Code(s): N18.30 - Chronic kidney disease, stage 3 unspecified Status: Acute (5) Essential (primary) hypertension: Code(s): I10 - Essential (primary) hypertension Status: Acute Assessment and Plan: 10/31: Stable goal range bp this am. Hold lasix and lisinopril in light of luis. Cont. norvasc and atenolol. (6) HLD (hyperlipidemia): Code(s): E78.5 - Hyperlipidemia, unspecified Status: Acute Assessment and Plan: 10/31: Cont. atorvastatin. Plan Diet: HH Diet. Activity: As tolerated. Analgesia: Tylenol. prn. VTE prophylaxis: Lovenox 30mg d/t crcl 25 with adjusted bw. May need to go to 40mg. Ulcer prophylaxis: ppi Disposition: Expect 24-48 hours of further management. Time Spent With Patient Time: 35 minutes. Subjective Date/time seen: 10/31/23 08:13 Interval history: Cammie Nicole is an 82 year female with pmh CKD, HTN, HLD who presents with having more URI type symptoms over the last week with chills and fevers. She reports a dry cough. She does note some dysuria a little over one week ago that has been improved. She took a home covid test (negative) and came for further evaluation as she continued to feel symptomatic. She reports having had poor intake over the last few days. 10/31: Patient denies any dysuria at this time. She rested well. Review of Systems Review of Systems: All systems reviewed & are unremarkable except as noted in HPI and below Exam Narrative: GENERAL APPEARANCE: Appears to be in no acute distress. HEAD: normocephalic atraumatic EYES: PERRL, EOMI. Vision grossly intact. ENT: Hearing grossly intact, no nasal discharge NECK: Neck supple, trachea midline. CARDIAC: Normal S1/S2. Rhythm is regular. No murmurs, rubs, or gallops. No cyanosis or pallor. Extremities are warm and well perfused. LUNGS: Clear to auscultation without rales, rhonchi, wheezing or diminished breath sounds. Respirations even and unlabored. ABDOMEN: BS positive x 4 quadrants. Soft, nondistended, mild ttp suprapubic region.. No guarding or rebound. MSK: No joint tenderness/swelling, fair strength in all extremities. PERIPHERAL VASCULAR: Peripheral pulses palpable. Normal perfusion, cap refill <2 seconds. No edema. NEURO: Follows commands. No focal deficits. SKIN: [place] without lesions or eruptions. PSYCH: Stable, no paranoia or delusional thinking. Objective Data Vital Signs Vital Signs: Vital Signs - 24 hr 10/30/23 11:12 10/30/23 16:14 10/30/23 16:45 Temperature 97.2 F L 98.2 F Pulse Rate 56 L 82 79 Respiratory Rate 18 18 18 Blood Pressure 107/44 L 174/58 H 155/56 H Pulse Oximetry 94 98 98 Oxygen Delivery Room Air Oxygen Flow Rate 10/30/23 18:35 10/30/23 18:39 10/30/23 22:00 Temperature 99.3 F 99.6 F Pulse Rate 79 64 58 L Respiratory Rate 18 16 17 Blood Pressure 114/53 L 118/50 L Pulse Oximetry 98 94 95 Oxygen Delivery Room Air Oxygen Flow Rate 10/31/23 06:00 10/31/23 06:15 Temperat
[2023-10-31] MEDS: SERTRALINE HCL 50 MG TABLET PO (09:10)
[2023-10-31] MEDS: PANTOPRAZOLE 40 MG TABLET PO ×2 (09:10→17:34)
[2023-10-31] MEDS: ASPIRIN 81 MG ENTERIC TABLET PO (09:10)
[2023-10-31] MEDS: amLODIPine BESYLATE 5 MG TABLET PO (09:10)
[2023-10-31] MEDS: atenoloL 25 MG TABLET PO (09:13)
[2023-11-01] MEDS: BENZONATATE 100 MG CAPSULE PO ×4 (00:11→17:06)
[2023-11-01] MEDS: ACETAMINOPHEN 500 MG TABLET 1000 MG PO ×3 (03:27→18:57)
[2023-11-01] MEDS: SODIUM CHLORIDE 0.9% IV 1,000 ML 125 ML IV CONT (03:28)
[2023-11-01 05:21] VITALS: BP 138/60; PULSE 70; RESP 18; TEMP 36.9; O2SAT 96
[2023-11-01 07:29] LABS: Anion Gap 8 mmol/L (8-16); Blood Urea Nitrogen 10 mg/dL (7-17); Calcium 8.2 mg/dL (8.4-10.2); Carbon Dioxide 20 mmol/L (22-30); Chloride 112 mmol/L (98-107); Estimated Glomerular Filt Rate > 60; Glucose 110 mg/dL (65-110); Potassium 3.2 mmol/L (3.4-5.0); Sodium 140 mmol/L (137-145)
[2023-11-01 08:50] VITALS: PULSE 64
[2023-11-01] MEDS: amLODIPine BESYLATE 5 MG TABLET PO (08:50)
[2023-11-01] MEDS: ASPIRIN 81 MG ENTERIC TABLET PO (08:50)
[2023-11-01] MEDS: atenoloL 25 MG TABLET PO (08:50)
[2023-11-01] MEDS: SERTRALINE HCL 50 MG TABLET PO (08:51)
[2023-11-01] MEDS: PANTOPRAZOLE 40 MG TABLET PO ×2 (08:51→17:06)
[2023-11-01] MEDS: ENOXAPARIN 30 MG/0.3 ML SYRINGE SUB-Q (08:51)
[2023-11-01 11:29] LABS: Hemoglobin 10.5 g/dL (12.0-15.0); Mean Corpuscular HGB Conc 30.9 g/dl (32-36); Mean Corpuscular Hemoglobin 29.5 pg (26-34); Mean Corpuscular Volume 95.5 fl (80-100); Mean Platelet Volume 11.3 fl (7.4-10.4); Platelet Count Result 170 k/mm3 (150-375); Red Blood Count 3.56 M/mm3 (4.2-5.4); Red Cell Distribution Width 13.4 % (11.5-14.5); White Blood Count 8.6 K/mm3 (4.5-10.0)
[2023-11-01 12:11] VITALS: O2SAT 92
--- NOTE | 2023-11-01 12:44 | PM.IMPN ---
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 claudication: Code(s): M48.061 - Spinal stenosis, lumbar region without neurogenic claudication Status: Acute (4) RLS (restless legs syndrome): Code(s): G25.81 - Restless legs syndrome Status: Acute (5) Hypertensive chronic kidney disease with stage 1 through stage 4 chronic kidney disease, or unspecified chronic kidney disease: Code(s): I12.9 - Hypertensive chronic kidney disease with stage 1 through stage 4 chronic kidney disease, or unspecified chronic kidney disease Status: Acute (6) Chronic GERD: Code(s): K21.9 - Gastro-esophageal reflux disease without esophagitis Status: Acute (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 He also reported cough congestion days taking medications. ED evaluation showed mild fever. CBC with mild leukocytosis 11 K DIMAS with creatinine 1.6. UA positive for UTI. Influenza COVID screen was negative. Chest x-ray with no acute cardiopulmonary disease. CT abdomen pelvis with left-sided pyelitis. Was started on IV antibiotics with ceftriaxone. Hydration was started. DIMAS has resolved. IV fluid has been stopped. WBC count has normalized. Continues to have some cough and shortness of breath. Will recheck a chest x-ray today. Urine culture is no growth. Replace potassium. History of Nagi-Danlos disease GERD hypertension. Lisinopril on hold due to DIMAS. DVT prophylaxis with Lovenox Subjective Date/time seen: 11/01/23 12:44 Interval history: Cammie Nicole is an 82 year female with pmh CKD, HTN, HLD who presents with having more URI type symptoms over the last week with chills and fevers. She reports a dry cough. She does note some dysuria a little over one week ago that has been improved. She took a home covid test (negative) and came for further evaluation as she continued to feel symptomatic. She reports having had poor intake over the last few days. 10/31: Patient denies any dysuria at this time. She rested well. 11/01/2023: Chidi a fever yesterday. Does not feel well. Feels a bit short of breath. Continues to have cough. No leg swelling. [place] a little puffy in her hands Review of Systems Review of Systems: All systems reviewed & are unremarkable except as noted in HPI and below Exam Narrative: GENERAL APPEARANCE: Appears to be in no acute distress. HEAD: normocephalic atraumatic EYES: PERRL, EOMI. Vision grossly intact. ENT: Hearing grossly intact, no nasal discharge NECK: Neck supple, trachea midline. CARDIAC: Normal S1/S2. Rhythm is regular. No murmurs, rubs, or gallops. No cyanosis or pallor. Extremities are warm and well perfused. LUNGS: Clear to auscultation without rales, rhonchi, wheezing or diminished breath sounds. Respirations even and unlabored. ABDOMEN: BS positive x 4 quadrants. Soft, nondistended, mild ttp suprapubic region.. No guarding or rebound. MSK: No joint tenderness/swelling, fair strength in all extremities. PERIPHERAL VASCULAR: Peripheral pulses palpable. Normal perfusion, cap refill <2 seconds. No edema. NEURO: Follows commands. No focal deficits. SKIN: [place] without lesions or eruptions. PSYCH: Stable, no paranoia or delusional thinking. Objective Data Vital Signs Vital Signs: Vital Signs - 24 hr 10/31/23 14:00 10/31/23 20:00 10/31/23 21:54 Temperature 100.3 F H 98.2 F Pulse Rate 83 83 68 Respiratory Rate 20 20 18 Blood Pressure 121/75 141/58 H Pulse Oximetry 95 95 94 Oxygen Delivery Room Air Oxygen Flow Rate 11/01/23 05:21 11/01/23 08:50 11/01/23 12:11 Temp
[2023-11-01] MEDS: POTASSIUM CHLORIDE 20 MEQ ER TABLET 40 MEQ PO (13:20)
[2023-11-01 14:00] VITALS: BP 145/51; PULSE 80; RESP 18; TEMP 36.3; O2SAT 93
[2023-11-01] MEDS: ATORVASTATIN 20 MG TABLET PO (20:54)
[2023-11-01] MEDS: FLUTICASONE PROPIONATE 0.05% NA SPR 16 GM BTL (*BKC) 1 SPRAY NASAL (20:54)
[2023-11-01 21:23] VITALS: BP 150/72; PULSE 81; RESP 20; TEMP 37; O2SAT 92
[2023-11-02] VITALS (12 sets, daily range): BP systolic 132–145; BP diastolic 52–69; PULSE 59–92; RESP 16–22; TEMP 36–37.1; O2SAT 88–98
[2023-11-02] MEDS: IPRATROPIUM BR 0.02% INH SOLN 0.5 MG/2.5 ML VIAL INHALATION ×2 (01:43→21:40)
[2023-11-02] MEDS: ALBUTEROL SULFATE NEB 2.5 MG/3 ML INH INHALATION ×2 (01:43→21:40)
[2023-11-02 06:01] LABS: Basophils Percent Auto 0.3 % (0.2-1.2); Eosinophils Absolute Auto 0.1 K/mm3 (0-0.3); Eosinophils Percent Auto 0.4 % (0-4.4); Hematocrit 34.1 % (37.0-47.0); Hemoglobin 11.1 g/dL (12.0-15.0); Immature Granulocyte Absolute 0.09 K/mm3 (0.00-0.031); Immature Granulocyte Percent A 0.8 % (0-0.5); Lymphocytes Percent Auto 12.6 % (18.3-44.2); Mean Corpuscular HGB Conc 32.6 g/dl (32-36); Mean Corpuscular Hemoglobin 29.9 pg (26-34); Mean Corpuscular Volume 91.9 fl (80-100); Mean Platelet Volume 10.2 fl (7.4-10.4); Monocytes Absolute Auto 0.9 K/mm3 (0.1-0.6); Monocytes Percent Auto 8.3 % (2.6-8.5); Neutrophils Absolute Auto 8.6 K/mm3 (1.3-6.7); Neutrophils Percent Auto 77.6 % (45.5-73.1); Platelet Count Result 212 k/mm3 (150-375); Red Blood Count 3.71 M/mm3 (4.2-5.4); White Blood Count 11.1 K/mm3 (4.5-10.0)
[2023-11-02 06:16] LABS: Alanine Aminotransferase 21 U/L (6-35); Albumin Level 3.7 g/dL (3.5-5.1); Alkaline Phosphatase 89 U/L (38-126); Anion Gap 12 mmol/L (8-16); Aspartate Amino Transferase 29 U/L (14-36); Bilirubin,Total 0.7 mg/dL (0.2-1.3); Blood Urea Nitrogen 8 mg/dL (7-17); Carbon Dioxide 19 mmol/L (22-30); Chloride 107 mmol/L (98-107); Estimated Glomerular Filt Rate > 60; Glucose 131 mg/dL (65-110); Potassium 3.5 mmol/L (3.4-5.0); Sodium 138 mmol/L (137-145)
[2023-11-02] MEDS: atenoloL 25 MG TABLET PO (09:33)
[2023-11-02] MEDS: PANTOPRAZOLE 40 MG TABLET PO ×2 (09:35→17:18)
[2023-11-02] MEDS: BENZONATATE 100 MG CAPSULE PO ×3 (09:35→17:18)
[2023-11-02] MEDS: FLUTICASONE PROPIONATE 0.05% NA SPR 16 GM BTL (*BKC) 1 SPRAY NASAL ×2 (09:35→20:48)
[2023-11-02] MEDS: ASPIRIN 81 MG ENTERIC TABLET PO (09:35)
[2023-11-02] MEDS: amLODIPine BESYLATE 5 MG TABLET PO (09:35)
[2023-11-02] MEDS: SERTRALINE HCL 50 MG TABLET PO (09:35)
[2023-11-02] MEDS: ENOXAPARIN 40 MG/0.4 ML SYRINGE SUB-Q (09:35)
[2023-11-02 12:16] LABS: Influenza A QL RT-PCR Negative (Negative); Influenza B QL RT-PCR Negative (Negative); RSV RNA, RT-PCR Negative (Negative); SARS-CoV-2 RNA PCR Negative (Negative)
--- NOTE | 2023-11-02 13:49 | PM.IMPN ---
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 claudication: Code(s): M48.061 - Spinal stenosis, lumbar region without neurogenic claudication Status: Acute (4) RLS (restless legs syndrome): Code(s): G25.81 - Restless legs syndrome Status: Acute (5) Hypertensive chronic kidney disease with stage 1 through stage 4 chronic kidney disease, or unspecified chronic kidney disease: Code(s): I12.9 - Hypertensive chronic kidney disease with stage 1 through stage 4 chronic kidney disease, or unspecified chronic kidney disease Status: Acute (6) Chronic GERD: Code(s): K21.9 - Gastro-esophageal reflux disease without esophagitis Status: Acute (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 He also reported cough congestion days taking medications. ED evaluation showed mild fever. CBC with mild leukocytosis 11 K DIMAS with creatinine 1.6. UA positive for UTI. Influenza COVID screen was negative. Chest x-ray with no acute cardiopulmonary disease. CT abdomen pelvis with left-sided pyelitis. Was started on IV antibiotics with ceftriaxone. Hydration was started. DIMAS has resolved. IV fluid has been stopped. WBC count has normalized. Continues to have some cough and shortness of breath. Recheck chest x-ray unremarkable Urine culture is no growth. Replace potassium. History of Nagi-Danlos disease GERD hypertension. Lisinopril on hold due to DIMAS. DVT prophylaxis with Lovenox. Mild hypoxia present eating oxygen supplementation. Will recheck COVID flu and RSV swab. RSV was not done before. Mild leukocytosis present. Will get CT chest and abdomen repeat. Will do strep swab for the neck pain continue on IV ceftriaxone Subjective Date/time seen: 11/02/23 13:49 Interval history: Cammie Nicole is an 82 year female with pmh CKD, HTN, HLD who presents with having more URI type symptoms over the last week with chills and fevers. She reports a dry cough. She does note some dysuria a little over one week ago that has been improved. She took a home covid test (negative) and came for further evaluation as she continued to feel symptomatic. She reports having had poor intake over the last few days. 10/31: Patient denies any dysuria at this time. She rested well. 11/01/2023: Chidi a fever yesterday. Does not feel well. Feels a bit short of breath. Continues to have cough. No leg swelling. [place] a little puffy in her hands 11/02/2023: Patient still feels a bit short of breath. Still has cough. Has some discomfort in her throat nasal drainage in the back. Lower abdomen is still sore. WBC count bumped up today to 11. Was a bit hypoxic overnight and needed to be placed on oxygen. Review of Systems Review of Systems: All systems reviewed & are unremarkable except as noted in HPI and below Exam Narrative: GENERAL APPEARANCE: Appears to be in no acute distress. HEAD: normocephalic atraumatic EYES: PERRL, EOMI. Vision grossly intact. ENT: Hearing grossly intact, no nasal discharge NECK: Neck supple, trachea midline. CARDIAC: Normal S1/S2. Rhythm is regular. No murmurs, rubs, or gallops. No cyanosis or pallor. Extremities are warm and well perfused. LUNGS: Clear to auscultation without rales, rhonchi, wheezing or diminished breath sounds. Respirations even and unlabored. ABDOMEN: BS positive x 4 quadrants. Soft, nondistended, mild ttp suprapubic region.. No guarding or rebound. MSK: No joint tenderness/swelling, fair strength in all extremities. PERIPHERAL VASCULAR: Peripheral pulses palpable. Normal perfusion, cap refill <2 sec
[2023-11-02] MEDS: FUROSEMIDE INJ 40 MG/4 ML VIAL 20 MG IV PUSH (15:08)
[2023-11-02] MEDS: POTASSIUM CHLORIDE 20 MEQ ER TABLET 40 MEQ PO (15:08)
[2023-11-02] MEDS: ATORVASTATIN 20 MG TABLET PO (20:48)
[2023-11-03 03:56] VITALS: BP 138/63; PULSE 92; RESP 16; TEMP 37.2; O2SAT 98
[2023-11-03 06:24] LABS: Basophils Percent Auto 0.2 % (0.2-1.2); Eosinophils Absolute Auto 0.2 K/mm3 (0-0.3); Hematocrit 36.5 % (37.0-47.0); Immature Granulocyte Absolute 0.09 K/mm3 (0.00-0.031); Lymphocytes Absolute Auto 2.42 K/mm3 (0.9-3.2); Lymphocytes Percent Auto 27.9 % (18.3-44.2); Mean Corpuscular HGB Conc 32.9 g/dl (32-36); Mean Corpuscular Hemoglobin 29.9 pg (26-34); Mean Corpuscular Volume 90.8 fl (80-100); Mean Platelet Volume 10.1 fl (7.4-10.4); Monocytes Absolute Auto 0.7 K/mm3 (0.1-0.6); Monocytes Percent Auto 7.5 % (2.6-8.5); Neutrophils Absolute Auto 5.3 K/mm3 (1.3-6.7); Neutrophils Percent Auto 61.4 % (45.5-73.1); Platelet Count Result 265 k/mm3 (150-375); Red Blood Count 4.02 M/mm3 (4.2-5.4); Red Cell Distribution Width 12.9 % (11.5-14.5); White Blood Count 8.7 K/mm3 (4.5-10.0)
[2023-11-03 06:43] LABS: Alanine Aminotransferase 29 U/L (6-35); Albumin Level 3.7 g/dL (3.5-5.1); Alkaline Phosphatase 92 U/L (38-126); Anion Gap 9 mmol/L (8-16); Aspartate Amino Transferase 51 U/L (14-36); Bilirubin,Total 0.8 mg/dL (0.2-1.3); Blood Urea Nitrogen 9 mg/dL (7-17); Calcium 9.1 mg/dL (8.4-10.2); Carbon Dioxide 26 mmol/L (22-30); Chloride 105 mmol/L (98-107); Estimated Glomerular Filt Rate > 60; Glucose 101 mg/dL (65-110); Potassium 3.6 mmol/L (3.4-5.0); Sodium 140 mmol/L (137-145)
--- NOTE | 2023-11-03 07:52 | PC.NURSE ---
Strep test was order per hospitalist on 11/02. Military Analyst spoke with patient about test and patient refused saying the back of her neck hurt from laying in bed, but didn't have sore throat.
[2023-11-03] MEDS: BENZONATATE 100 MG CAPSULE PO ×2 (10:10→17:54)
[2023-11-03] MEDS: SERTRALINE HCL 50 MG TABLET PO (10:10)
[2023-11-03] MEDS: ENOXAPARIN 40 MG/0.4 ML SYRINGE SUB-Q (10:10)
[2023-11-03] MEDS: PANTOPRAZOLE 40 MG TABLET PO ×2 (10:11→17:54)
[2023-11-03] MEDS: amLODIPine BESYLATE 5 MG TABLET PO (10:11)
[2023-11-03] MEDS: ASPIRIN 81 MG ENTERIC TABLET PO (10:11)
[2023-11-03] MEDS: FLUTICASONE PROPIONATE 0.05% NA SPR 16 GM BTL (*BKC) 1 SPRAY NASAL ×2 (10:11→20:12)
[2023-11-03 10:12] VITALS: PULSE 69
[2023-11-03] MEDS: atenoloL 25 MG TABLET PO (10:12)
[2023-11-03] MEDS: ACETAMINOPHEN 500 MG TABLET 1000 MG PO (10:44)
[2023-11-03 14:45] VITALS: BP 120/60; PULSE 58; RESP 16; TEMP 36.8; O2SAT 95
--- NOTE | 2023-11-03 15:54 | PM.IMPN ---
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 claudication: Code(s): M48.061 - Spinal stenosis, lumbar region without neurogenic claudication Status: Acute (4) RLS (restless legs syndrome): Code(s): G25.81 - Restless legs syndrome Status: Acute (5) Hypertensive chronic kidney disease with stage 1 through stage 4 chronic kidney disease, or unspecified chronic kidney disease: Code(s): I12.9 - Hypertensive chronic kidney disease with stage 1 through stage 4 chronic kidney disease, or unspecified chronic kidney disease Status: Acute (6) Chronic GERD: Code(s): K21.9 - Gastro-esophageal reflux disease without esophagitis Status: Acute (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 He also reported cough congestion days taking medications. ED evaluation showed mild fever. CBC with mild leukocytosis 11 K DIMAS with creatinine 1.6. UA positive for UTI. Influenza COVID screen was negative. Chest x-ray with no acute cardiopulmonary disease. CT abdomen pelvis with left-sided pyelitis. Was started on IV antibiotics with ceftriaxone. Hydration was started. DIMAS has resolved. IV fluid has been stopped. WBC count has normalized. Continues to have some cough and shortness of breath. Recheck chest x-ray unremarkable Urine culture is no growth. Replace potassium. History of Nagi-Danlos disease GERD hypertension. Lisinopril on hold due to DIMAS. DVT prophylaxis with Lovenox. Mild hypoxia present eating oxygen supplementation. Recheck COVID flu and RSV swab came back negative. Mild leukocytosis present. Strep swab refused by the patient continue on IV ceftriaxone. CT chest showed patchy ground-glass and reticular nodular opacities of the lung consistent with pneumonia. Findings of pyelitis is resolved. There is mild mediastinal lymphadenopathy which is likely reactive. Will add azithromycin for atypical coverage. Continue on ceftriaxone as ordered. Clinically improved. Subjective Date/time seen: 11/03/23 15:54 Interval history: Cammie Nicole is an 82 year female with pmh CKD, HTN, HLD who presents with having more URI type symptoms over the last week with chills and fevers. She reports a dry cough. She does note some dysuria a little over one week ago that has been improved. She took a home covid test (negative) and came for further evaluation as she continued to feel symptomatic. She reports having had poor intake over the last few days. 10/31: Patient denies any dysuria at this time. She rested well. 11/01/2023: Chidi a fever yesterday. Does not feel well. Feels a bit short of breath. Continues to have cough. No leg swelling. [place] a little puffy in her hands 11/02/2023: Patient still feels a bit short of breath. Still has cough. Has some discomfort in her throat nasal drainage in the back. Lower abdomen is still sore. WBC count bumped up today to 11. Was a bit hypoxic overnight and needed to be placed on oxygen. 11/03/2023: Feels better. Sweated overnight. Labs reviewed. CT chest is pending. Review of Systems Review of Systems: All systems reviewed & are unremarkable except as noted in HPI and below Exam Narrative: GENERAL APPEARANCE: Appears to be in no acute distress. HEAD: normocephalic atraumatic EYES: PERRL, EOMI. Vision grossly intact. ENT: Hearing grossly intact, no nasal discharge NECK: Neck supple, trachea midline. CARDIAC: Normal S1/S2. Rhythm is regular. No murmurs, rubs, or gallops. No cyanosis or pallor. Extremities are warm and well perfused. LUNGS: Clear to auscultation withou
[2023-11-03] MEDS: AZITHROMYCIN 500 MG/NS 250 ML 500 MG/250 ML BAG 250 MG IVPB (17:55)
[2023-11-03 20:10] VITALS: BP 127/75; PULSE 60; RESP 16; TEMP 36.5; O2SAT 94
[2023-11-03] MEDS: ATORVASTATIN 20 MG TABLET PO (20:12)
[2023-11-03 21:46] VITALS: PULSE 80; RESP 20
[2023-11-03] MEDS: IPRATROPIUM BR 0.02% INH SOLN 0.5 MG/2.5 ML VIAL INHALATION (21:46)
[2023-11-03] MEDS: ALBUTEROL SULFATE NEB 2.5 MG/3 ML INH INHALATION (21:46)
[2023-11-03 21:59] VITALS: PULSE 82; RESP 20
[2023-11-04] MEDS: ACETAMINOPHEN 500 MG TABLET 1000 MG PO (00:53)
[2023-11-04 05:10] VITALS: BP 139/59; PULSE 60; RESP 14; TEMP 36.7; O2SAT 94
[2023-11-04 05:58] LABS: Basophils Absolute Auto 0.1 K/mm3 (0.0-0.1); Basophils Percent Auto 0.8 % (0.2-1.2); Eosinophils Absolute Auto 0.2 K/mm3 (0-0.3); Eosinophils Percent Auto 2.3 % (0-4.4); Hematocrit 34.1 % (37.0-47.0); Hemoglobin 11.1 g/dL (12.0-15.0); Immature Granulocyte Absolute 0.12 K/mm3 (0.00-0.031); Immature Granulocyte Percent A 1.5 % (0-0.5); Lymphocytes Absolute Auto 2.28 K/mm3 (0.9-3.2); Lymphocytes Percent Auto 29.4 % (18.3-44.2); Mean Corpuscular HGB Conc 32.6 g/dl (32-36); Mean Corpuscular Hemoglobin 29.9 pg (26-34); Mean Corpuscular Volume 91.9 fl (80-100); Mean Platelet Volume 9.9 fl (7.4-10.4); Monocytes Absolute Auto 0.6 K/mm3 (0.1-0.6); Monocytes Percent Auto 7.3 % (2.6-8.5); Neutrophils Absolute Auto 4.6 K/mm3 (1.3-6.7); Neutrophils Percent Auto 58.7 % (45.5-73.1); Platelet Count Result 276 k/mm3 (150-375); Red Blood Count 3.71 M/mm3 (4.2-5.4); Red Cell Distribution Width 12.8 % (11.5-14.5); White Blood Count 7.8 K/mm3 (4.5-10.0)
[2023-11-04 06:35] LABS: Alanine Aminotransferase 36 U/L (6-35); Albumin Level 3.3 g/dL (3.5-5.1); Alkaline Phosphatase 81 U/L (38-126); Anion Gap 10 mmol/L (8-16); Aspartate Amino Transferase 43 U/L (14-36); Bilirubin,Total 0.5 mg/dL (0.2-1.3); Blood Urea Nitrogen 15 mg/dL (7-17); Calcium 8.8 mg/dL (8.4-10.2); Carbon Dioxide 25 mmol/L (22-30); Chloride 105 mmol/L (98-107); Estimated Glomerular Filt Rate > 60; Glucose 103 mg/dL (65-110); Potassium 3.3 mmol/L (3.4-5.0); Sodium 140 mmol/L (137-145)
[2023-11-04] MEDS: BENZONATATE 100 MG CAPSULE PO ×2 (09:00→13:26)
[2023-11-04 09:45] VITALS: PULSE 80
[2023-11-04] MEDS: amLODIPine BESYLATE 5 MG TABLET PO (09:45)
[2023-11-04] MEDS: PANTOPRAZOLE 40 MG TABLET PO (09:45)
[2023-11-04] MEDS: SERTRALINE HCL 50 MG TABLET PO (09:45)
[2023-11-04] MEDS: ASPIRIN 81 MG ENTERIC TABLET PO (09:45)
[2023-11-04] MEDS: atenoloL 25 MG TABLET PO (09:45)
[2023-11-04] MEDS: ENOXAPARIN 40 MG/0.4 ML SYRINGE SUB-Q (09:47)
--- NOTE | 2023-11-04 10:39 | PM.DS ---
DS: Admitting Diagnosis Discharge Date 11/04/2023 Admitting Diagnosis Abdominal pain DS: Discharge Diagnosis Discharge Diagnosis (1) Acute UTI: Code(s): N39.0 - Urinary tract infection, site not specified Status: Acute (2) DIMAS (acute kidney injury): Code(s): N17.9 - Acute kidney failure, unspecified Status: Acute (3) Spinal stenosis of lumbar region without neurogenic claudication: Code(s): M48.061 - Spinal stenosis, lumbar region without neurogenic claudication Status: Acute (4) RLS (restless legs syndrome): Code(s): G25.81 - Restless legs syndrome Status: Acute (5) Hypertensive chronic kidney disease with stage 1 through stage 4 chronic kidney disease, or unspecified chronic kidney disease: Code(s): I12.9 - Hypertensive chronic kidney disease with stage 1 through stage 4 chronic kidney disease, or unspecified chronic kidney disease Status: Acute (6) Chronic GERD: Code(s): K21.9 - Gastro-esophageal reflux disease without esophagitis Status: Acute (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 She also reported cough congestion days taking medications.? ED evaluation showed mild fever.? CBC with mild leukocytosis 11 K DIMAS with creatinine 1.6.? UA positive for UTI.? Influenza COVID screen was negative.? Chest x-ray with no acute cardiopulmonary disease.? CT abdomen pelvis with left-sided pyelitis.? Was started on IV antibiotics with ceftriaxone.? Hydration was started.? DIMAS has resolved.? IV fluid has been stopped.? WBC count has normalized.? Continues to have some cough and shortness of breath.? Recheck chest x-ray unremarkable Urine culture is no growth.? Replace potassium.? History of Nagi-Danlos disease, GERD, hypertension.? Lisinopril on hold due to DIMAS.? DVT prophylaxis with Lovenox.? Mild hypoxia present eating oxygen supplementation.? Recheck COVID flu and RSV swab came back negative.? Mild leukocytosis present.? Strep swab refused by the patient continue on IV ceftriaxone.? CT chest showed patchy ground-glass and reticular nodular opacities of the lung consistent with pneumonia.? Findings of pyelitis is resolved.? There is mild mediastinal lymphadenopathy which is likely reactive.? Added azithromycin for atypical coverage.? Continue on ceftriaxone as ordered.? Clinically improved. Clinically stable for discharge. Switch antibiotics to oral which she will complete at home. DIMAS resolved resume home medications at discharge. Time Spent with Patient Time attestation: Total time spent providing and/or coordinating discharge services: 35 minutes Exam Narrative: GENERAL APPEARANCE: Appears to be in no acute distress. HEAD: normocephalic atraumatic EYES: PERRL, EOMI. Vision grossly intact. ENT: Hearing grossly intact, no nasal discharge NECK: Neck supple, trachea midline. CARDIAC: Normal S1/S2. Rhythm is regular. No murmurs, rubs, or gallops. No cyanosis or pallor. Extremities are warm and well perfused. LUNGS: Clear to auscultation without rales, rhonchi, wheezing or diminished breath sounds. Respirations even and unlabored. ABDOMEN: BS positive x 4 quadrants. Soft, nondistended, nontender MSK: No joint tenderness/swelling, fair strength in all extremities. PERIPHERAL VASCULAR: Peripheral pulses palpable. Normal perfusion, cap refill <2 seconds. No edema. NEURO: Follows commands. No focal deficits. SKIN: [place] without lesions or eruptions. PSYCH: Stable, no paranoia or delusional thinking. DS: Data Data Completed and Pending Labs on day of discharge: Labs from last 24 hours 11/04/23 05:43 WBC 7.8 RBC 3.71 L Hgb 11.1 L Hct 34.1 L MCV 91.9 MCH 29.9 MCHC 32.6 RDW 12
[2023-11-04] MEDS: HYDROCORTISONE 1% 30 GM CREAM 1 APPLIC TOPICAL (13:27)
[2023-11-04 13:50] VITALS: BP 132/63; PULSE 76; RESP 16; TEMP 36.6; O2SAT 97
== END 2023-11-04 17:00 | disposition home or self-care (01) | DRG 194 ==
LOC: ANHED 17:02 → ANH3MED 17:02
PROVIDERS: Emergency Medicine; Nurse Practitioner Family; Admitting Provider Family Medicine; Emergency Provider Physician Assistant; PCP Family Medicine; Visit Provider Internal Medicine
DX: J18.9 Pneumonia, unspecified organism (principal); N12 Tubulo-interstitial nephritis, not specified as acute or chronic; N39.0 Urinary tract infection, site not specified; Q79.60 Ehlers-Danlos syndrome, unspecified; N17.9 Acute kidney failure, unspecified; E78.5 Hyperlipidemia, unspecified; G25.81 Restless legs syndrome; I12.9 Hypertensive chronic kidney disease with stage 1 through stage 4 chronic kidney disease, or unspecified chronic kidney disease; K21.9 Gastro-esophageal reflux disease without esophagitis; M48.061 Spinal stenosis, lumbar region without neurogenic claudication; N18.30 Chronic kidney disease, stage 3 unspecified; Z96.641 Presence of right artificial hip joint; Z20.822 Contact with and (suspected) exposure to COVID-19; Z87.891 Personal history of nicotine dependence; Z79.82 Long term (current) use of aspirin
CPT/HCPCS: 36415; 71045; 71046; 71250; 74176; 74177; 80048; 80053; 81001; 83735; 85025; 85027; 87086; 87088; 87636; 87637; 94640; 96361; 96365; 97161; 97165; 97535; 99285; A9270; G0378; J0456; J0696; J1650; J1940; J7030; J7040; Q9967